=== PATIENT | female | born 1970 | race Caucasian/White ===

== ENCOUNTER 2023-09-04 14:14 | Emergency (ER) | payer SELFPAY ==
[2023-09-04 14:22] VITALS: BP 142/96
[2023-09-04 15:50] VITALS: BMI 29.5
--- NOTE | 2023-09-04 16:10 | ED.GENMED ---
History of Present Illness
General
Chief Complaint: Eye Problems
Source: patient
Exam Limitations: none
Time Seen by Provider: 09/04/23 15:22
Nursing documentation reviewed up to this point in time: agreed with
History of Present Illness
History of Present Illness:
52 y/o F with no sig pmh
says that 2 hours ago she was weed wacking and a piece of wood flew up into her L eye causing pain, redness, tearing, photophobia
foreign body sensation
+ blurry vision
very painful
some redness
clear tearing
Past History
Past History
ED Past Medical History: None
ED Past Surgical History: Orthopedic
Social History
Tobacco: Non-smoker
Review of Systems
Review of Systems
Allergies reviewed?: Yes
All Other Systems: Not applicable
Phy Exam
Physical Exam
Physical Exam:
GENERAL: Alert , in no apparent distress
EYE: pupils equal and reactive
L conjunctiva is erythematous, claer tearing
pupil normal
very photophobic
eoms intact
flipped lids without sign of retained FB
tetracaine and fluroscein stain --> + cornal abrasion over the pupil approx 2 mm
VISION 20/25 L EYE
CARDIAC: Regular rate and rhythm .
LUNGS: Clear breath sounds bilaterally, no acute respiratory distress, no wheezes/rales/rhonchi
NEUROLOGICAL: Alert and oriented, no focal neuro deficits
SKIN: Warm and dry, skin intact.
Course
Orders/Labs/Results
Orders:
Orders
09/04/23 16:09
Erythromycin (Ilotycin) [Erythromycin 0.5% Ophthalmic Ointment] See Dose Instructions OPHTH NOW STA
Ibuprofen [Motrin] 600 mg PO NOW STA
09/04/23 16:10
Visual Acuity- Treatment ONCE
09/04/23 17:55
Tetracaine HCl [Tetracaine 0.5% Ophthalmic Solution] 1 drop .ROUTE .STK-MED ONE
Vital Signs
Initial and Last Documented VS:
Initial Vital Signs
Temp Pulse Resp BP Pulse Ox
98.0 F 106 22 142/96 99
09/04/23 14:22 09/04/23 14:22 09/04/23 14:22 09/04/23 14:22 09/04/23 14:22
Last Documented Vital Signs
Temp Pulse Resp BP Pulse Ox
98.0 F 106 22 142/96 99
09/04/23 14:22 09/04/23 14:22 09/04/23 14:22 09/04/23 14:22 09/04/23 14:22
MDM/Problems Addressed
Differential Diagnosis Includes:
corneal abrasoin, eye fb
MDM/Problems Addressed:
52 y/o F with no sig pmh
here with left eye pain, phothophobia after getting struck in the L eye by a piece of wood while weed wacking 2 hours ago
clear tearing, fb sensation
eoms intact
+ blurry viison
no h/o contact lens wearing
on exam pt is anioux and uncomfortgable
has obvious corneal abrasion on montero' lamp exam
flipped lids, no sign of retained fb
tetracaine relieved pt's pain
erythromycin ointment
eye f/u
*Critical Care Note
Total Time (30-74mins, 75-104mins- exclusive of procedures): Not Applicable
ED Attending Note
-
Portions of this chart may have been created with voice recognition software.� Occasional wrong word or��sound alike� substitutions may have occurred due to the inherent limitations of voice recognition software.
Discharge Plan
Departure
Patient Disposition: Home (Routine Discharge)
Date of Disposition: 09/04/23
Time of Disposition: 16:39
Patient with high blood pressure during this ER visit?: Yes
Condition: Fair
Covid-19: Not Applicable
Discharge Problem:
Abrasion, corneal
Instructions: Corneal Abrasion (DC), BLOOD PRESSURE
Prescriptions:
New
erythromycin 5 mg/gram (0.5 %) ointment
0.5 inch ophthalmic (eye) QID Qty: 3.5 0RF
Rx Instructions:
apply to left eye 4 times a day for 7 days
Referrals:
Dale Bo MD [Active] - Follow up in 2-3 days
Aiyana Savage DO [Family Provider] - Follow up in 5-7 days
Activity Restrictions/Additional Instructions:
You have a scratch of your cornea from the wood chip. There is no signs of retained foreign body. Apply erythromycin ointment 4 times a day by pulling down your lid and squeezing a small ribbon of ointment within the crease there and allow your
eye to move around in socket and move the medication all around. Let it sit for 5 minutes and then you can wipe your eye. Do this 4 times a day for 7 days. Take ibuprofen every 8 hours for pain you can also use ice off-and-on. You should wear
sunglasses in bright lights. Return for any concern
Interventions
Interventions:
*Risk Screen - Suicide Last Done: 09/04/23 14:23
*General Assessment Last Done: 09/04/23 15:50
*Neglect/Abuse Screening Last Done: 09/04/23 14:23
ED- Fall Risk Assessment Last Done: 09/04/23 17:43
*ED COVID-19 Vaccine History Last Done: 09/04/23 14:23
*Nursing Disposition Last Done: 09/04/23 17:43
Discharge Date and Time
Discharge Date/Time: 09/04/23 17:44
Print Language: NIGERIAN
== END 2023-09-04 17:44 | disposition home or self-care (01) ==
LOC: EMR 14:14
PROVIDERS: EMERGENCY PHYSICIAN Emergency Medicine; FAMILY PHYSICIAN Family Medicine
DX: S05.02XA Injury of conjunctiva and corneal abrasion without foreign body, left eye, initial encounter (principal); W22.8XXA Striking against or struck by other objects, initial encounter
CPT/HCPCS: 99283